=== PATIENT | male | born 1950 | race Caucasian/White ===

== ENCOUNTER 2017-01-11 07:01 | Emergency (ER) | payer BC ==
[2017-01-11 07:10] VITALS: BP 130/86
--- NOTE | 2017-01-11 07:24 | UC ---
Respiratory Complaint HPI - HPI Summary HPI Summary: chest congestion / cough x 10 days , no fever, + chills, + nasal congestion , pnd - History of Current Complaint Chief Complaint: UCRespiratory Stated Complaint: CHEST CONGESTION Time Seen by Provider: 01/11/17 07:11 Hx Obtained From: Patient Onset/Duration: Gradual Onset, Lasting Days - 10, Still Present Timing: Constant Severity Initially: Moderate Severity Currently: Moderate Character: Cough: Nonproductive Aggravating Factors: Exertion, Deep Breaths Alleviating Factors: Nothing Associated Signs And Symptoms: Positive: Chills, URI, Nasal Congestion. Negative: Dyspnea, Fever, Pleuritic Chest Pain, Wheezing, Hemoptysis, Dizziness , Calf Pain, Edema - Allergies/Home Medications Allergies/Adverse Reactions: Allergies Allergy/AdvReac Type Severity Reaction Status Date / Time Penicillins Allergy Hives Verified 01/11/17 07:10 Home Medications: Home Medications [id number] W/ APAP [Delsym Cough + Cold D... 8-19-280-325 mg/10Ml] 1 liq PO ONCE PRN 01/11/17 [History Confirmed 01/11/17] Tylenol Sore Throat 1 tab PO SEE INSTRUCTIONS PRN 01/11/17 [History Confirmed ] PMH/Surg Hx/FS Hx/Imm Hx Endocrine History Of: Denies: Diabetes, Thyroid Disease, Hyperthyroidism, Hypothyroidism, Dyslipidemia Cardiovascular History Of: Reports: Hypertension Denies: Cardiac Disorders, Pacemaker/ICD, Myocardial Infarction, Congestive Heart Failure, Atrial Fibrillation, Deep Vein Thrombosis, Bleeding Disorders Respiratory History Of: Denies: COPD, Asthma, Bronchitis, Pneumonia, Pulmonary Embolism GI/ History Of: Reports: Gastroesophageal Reflux Denies: Ulcer, Gastrointestinal Bleed, Gall Bladder Disease, Kidney Stones, Diverticulitis, Renal Disease, Urosepsis Neurological History Of: Denies: TIA, CVA, Dementia, Seizures, Migraine Psychological History Of: Denies: Anxiety, Depression, Bipolar Disorder, Schizophrenia, Post Traumatic Stress Disorder Cancer History Of: Reports: Prostate Cancer Denies: Lung Cancer, Colorectal Cancer, Breast Cancer, Cervical Cancer Other History Of: Negative For: HIV, Hepatitis B, Hepatitis C, Anticoagulant Therapy - Surgical History Surgical History: None - Family History Known Family History: Positive: Cardiac Disease Negative: Hypertension - Social History Alcohol Use: None Substance Use Type: None Smoking Status (MU): Never Smoked Tobacco Review of Systems Constitutional: Chills Skin: Negative Eyes: Negative ENT: Nasal Discharge Respiratory: Cough Cardiovascular: Negative All Other Systems Reviewed And Are Negative: Yes Physical Exam Triage Information Reviewed: Yes Appearance: Well-Appearing, No Pain Distress, Well-Nourished Vital Signs: Initial Vital Signs Temp 98.2 F 01/11/17 07:05 Pulse 97 01/11/17 07:05 Resp 20 01/11/17 07:05 BP 130/86 01/11/17 07:05 Pulse Ox 99 01/11/17 07:05 Vital Signs Reviewed: Yes Eye Exam: Normal Eyes: Positive: Conjunctiva Clear ENT: Positive: Normal ENT inspection, Hearing grossly normal, Pharynx normal, Nasal congestion, Nasal drainage, TMs normal. Negative: Pharyngeal erythema Neck exam: Normal Neck: Positive: Supple, Nontender, No Lymphadenopathy Respiratory: Positive: Chest non-tender, Lungs clear, Normal breath sounds, No respiratory distress Cardiovascular: Positive: RRR, No Murmur, Pulses Normal Abdominal Exam: Normal Skin Exam: Normal UC Diagnostic Evaluation - Laboratory O2 Sat by Pulse Oximetry: 99 Respiratory Course/Dx - Differential Dx/Diagnosis Provider Diagnoses: BRONCHITIS Discharge - Discharge Plan Condition: Stable Disposition: HOME Prescriptions: Azithromycin TAB* [Zithromax TAB (Z-DUANE) 250 mg #6 tabs] 2 tab PO .TODAY, THEN 1 DAILY #1 duane Guaifenesin-Codeine [Cheratussin AC] 10 ml PO Q8H PRN #120 ml MDD 30 ml PRN Reason: Cough Patient Education Materials: Acute Bronchitis (ED) Referrals: Agustín Lopez MD [Primary Care Provider] - 7 Days
== END 2017-01-11 07:28 | disposition home or self-care (01) ==
LOC: UCCORT 07:01
DX: J40 Bronchitis, not specified as acute or chronic (principal); Z85.46 Personal history of malignant neoplasm of prostate; Z88.0 Allergy status to penicillin
CPT/HCPCS: 99212; G0463

== ENCOUNTER 2017-02-26 09:26 | Emergency (ER) | payer BC ==
--- NOTE | 2017-02-26 09:45 | UC ---
Back Pain HPI - HPI Summary HPI Summary: The patient comes in today for: 1. Low back pain: Onset: "I've had a back problem for a long time."--10 years. But this is worsening with age and increase in weight. Palliative/provocative: Learning over or standing for "a long time" makes it worse. Orestes's pills do not help. Leaning over for a long time makes it worse. Quality: Tightness feeling of the lower back. Region: Mid and Lower back Severity: 0/10 Time: Comes and goes. Associated symptoms: Previous evaluation: Over the last 10 years he has had x-rays which showed arthritis. Fevers/infections: None. Weakness/numbness: None Cancer/unexpected weight loss: He had radiation for prostate cancer about 1 years ago. Last x-ray: 1 year ago. Bowel/bladder: No incontinence. * - History of Current Complaint Stated Complaint: MID/LOWER BACK PAIN Time Seen by Provider: 02/26/17 09:38 Hx Obtained From: Patient - Allergies/Home Medications Allergies/Adverse Reactions: Allergies Allergy/AdvReac Type Severity Reaction Status Date / Time Penicillins Allergy See Comment Verified 02/26/17 09:55 PMH/Surg Hx/FS Hx/Imm Hx Previously Healthy: No Endocrine History Of: Denies: Diabetes, Thyroid Disease, Hyperthyroidism, Hypothyroidism, Dyslipidemia Cardiovascular History Of: Reports: Hypertension Denies: Cardiac Disorders, Pacemaker/ICD, Myocardial Infarction, Congestive Heart Failure, Atrial Fibrillation, Deep Vein Thrombosis, Bleeding Disorders Respiratory History Of: Denies: COPD, Asthma, Bronchitis, Pneumonia, Pulmonary Embolism GI/ History Of: Reports: Gastroesophageal Reflux Denies: Ulcer, Gastrointestinal Bleed, Gall Bladder Disease, Kidney Stones, Diverticulitis, Renal Disease, Urosepsis Neurological History Of: Denies: TIA, CVA, Dementia, Seizures, Migraine Psychological History Of: Denies: Anxiety, Depression, Bipolar Disorder, Schizophrenia, Post Traumatic Stress Disorder Cancer History Of: Reports: Prostate Cancer Denies: Lung Cancer, Colorectal Cancer, Breast Cancer, Cervical Cancer Other History Of: Negative For: HIV, Hepatitis B, Hepatitis C, Anticoagulant Therapy - Surgical History Surgical History: None - Family History Known Family History: Positive: Cardiac Disease Negative: Hypertension - Social History Alcohol Use: None Substance Use Type: None Smoking Status (MU): Never Smoked Tobacco Review of Systems Constitutional: Negative Skin: Negative Eyes: Negative ENT: Negative Respiratory: Negative Cardiovascular: Negative Gastrointestinal: Negative Genitourinary: Negative Musculoskeletal: Arthralgia, Myalgia All Other Systems Reviewed And Are Negative: Yes Physical Exam Triage Information Reviewed: Yes Appearance: Well-Appearing, No Pain Distress, Well-Nourished Vital Signs Reviewed: Yes Eyes: Positive: Conjunctiva Clear. Negative: Discharge ENT: Positive: Hearing grossly normal. Negative: Pharyngeal erythema, Nasal congestion, Nasal drainage, TM bulging, TM dull, TM red, Tonsillar swelling, Tonsillar exudate Dental: Negative: Gross Decay/Caries @, Dental Fracture @ Neck: Positive: Supple, Nontender, No Lymphadenopathy. Negative: Nuchal Rigidity Respiratory: Positive: Lungs clear, No respiratory distress, No accessory muscle use. Negative: Crackles, Wheezing Cardiovascular: Positive: RRR, No Murmur Abdomen Description: Positive: Nontender, No Organomegaly, Soft. Negative: Distended, Guarding, Peritoneal Signs Musculoskeletal: Positive: ROM Intact, No Edema, Other: - Back: no psychomotor slowing or guarding. Minimal tenderness along the lower thoracic paraspinous musculature. Neurological: Positive: Alert, Muscle Tone Normal Psychological: Positive: Age Appropriate Behavior, Consolable Skin: Negative: rashes, breakdown Diagnostics - Radiology No standard instances Xray Interpretation: No Acute Changes Radiology Interpretation Completed By: ED Physician - No signs of lytic lesions- -just degenerative joint disease and mild scoliosis. Back Pain Course/Dx - Course Course Of Treatment: He was told of his treatment options. He wants to try a muscle relaxer and a short trial of an NSAIDS. - Differential Dx/Diagnosis Provider Diagnoses: Back pain, chronic. hypertension. GERD Discharge - Discharge Plan Condition: Stable Disposition: HOME Patient Education Materials: Hypertension (ED), Chronic Back Pain (ED) Referrals: Agustín Lopez MD [Primary Care Provider] - 1 Week (Please see your primary care provider in about one to two weeks to see how well you are doing. If you get worse, please be seen sooner.)
[2017-02-26 09:55] VITALS: BP 133/87
--- NOTE | 2017-02-26 11:00 | RAD ---
Indication: Chronic mid to lower back pain. History of prostate cancer. Comparison: August 22, 2006 CT abdomen including AP and lateral deputy felony clerk images. Technique: AP and lateral views centered at the thoracic lumbar junction. Report: Mild RIGHT convex curve at the lumbar spine increased over the prior exam. Negative for spondylolisthesis at any level. Diffuse degenerative spondylosis and facet joint osteoarthritis increasing in severity extending caudal. Disc space narrowing is severe from L1-L2 through the lumbar sacral junction. Vertebral endplate osteophytosis is advanced throughout most marked along the lateral convex margins. No fracture or focal osseous lesion evident. Unremarkable paraspinal soft tissue contours. IMPRESSION: 1. No radiographic evidence for suspicious focal osseous lesions. 2. Multilevel advanced degenerative spondylosis and facet joint osteoarthritis.
== END 2017-02-26 10:18 | disposition home or self-care (01) ==
LOC: UCCORT 09:26
DX: M54.5 Low back pain (principal); K21.9 Gastro-esophageal reflux disease without esophagitis; I10 Essential (primary) hypertension; Z88.0 Allergy status to penicillin
CPT/HCPCS: 72080; 99212; G0463

== ENCOUNTER 2018-03-27 13:56 | Emergency (ER) | payer BC ==
[2018-03-27 14:14] VITALS: BP 124/67
[2018-03-27] MEDS ORDERED: Albuterol HFA INHALER* 8 gm MDI INH ONE (15:00)
--- NOTE | 2018-03-27 15:01 | UC ---
Respiratory Complaint HPI - HPI Summary HPI Summary: 67 year old male with history of HTN here with cough and sob for few days. Reports URI about two weeks ago but in the past few days dry cough and subjective fever. No n/v/d or any other complaints. Reports wheezing sometimes but no chest pain. - History of Current Complaint Chief Complaint: UCRespiratory Stated Complaint: UPPER RESPIRATORY Time Seen by Provider: 03/27/18 14:19 Onset/Duration: Gradual Onset Severity Initially: Mild Pain Intensity: 0 Character: Cough: Nonproductive Aggravating Factors: Nothing Alleviating Factors: Nothing Associated Signs And Symptoms: Positive: Fever - Allergies/Home Medications Allergies/Adverse Reactions: Allergies Allergy/AdvReac Type Severity Reaction Status Date / Time Penicillins Allergy Swelling Verified 03/27/18 14:11 PMH/Surg Hx/FS Hx/Imm Hx Previously Healthy: Yes Cardiovascular History: Hypertension Other History Of: Negative For: HIV, Hepatitis B, Hepatitis C, Anticoagulant Therapy - Surgical History Surgical History: None - Family History Known Family History: Positive: Cardiac Disease Negative: Hypertension - Social History Alcohol Use: None Substance Use Type: None Smoking Status (MU): Never Smoked Tobacco - Immunization History Most Recent Tetanus Shot: unknown Review of Systems Constitutional: Fever Respiratory: Cough Musculoskeletal: Negative Neurological: Negative Psychological: Negative All Other Systems Reviewed And Are Negative: Yes Physical Exam Triage Information Reviewed: Yes Appearance: Well-Appearing, No Pain Distress, Well-Nourished Vital Signs: Initial Vital Signs Temp 37.2 C 03/27/18 14:09 Pulse 92 03/27/18 14:09 Resp 16 03/27/18 14:09 BP 124/67 03/27/18 14:09 Pulse Ox 99 03/27/18 14:09 Vital Signs Reviewed: Yes Eye Exam: Normal ENT Exam: Normal ENT: Positive: Normal ENT inspection Dental Exam: Normal Neck exam: Normal Neck: Positive: 1 Respiratory Exam: Normal Respiratory: Positive: Other: - Expiratory wheezing during cough. Cardiovascular Exam: Normal Abdominal Exam: Normal Musculoskeletal Exam: Normal Neurological Exam: Normal Psychological Exam: Normal Skin Exam: Normal UC Diagnostic Evaluation - Laboratory O2 Sat by Pulse Oximetry: 99 Respiratory Course/Dx - Differential Dx/Diagnosis Differential Diagnosis/HQI/PQRI: Bronchitis, Sinusitis Provider Diagnoses: bronchitis Discharge - Sign-Out/Discharge Documenting (check all that apply): Discharge/Admit/Transfer - Discharge Plan Condition: Good Disposition: HOME Prescriptions: Azithromycin TAB* [Zithromax TAB (Z-DUANE) 250 mg #6 tabs] 2 tab PO .TODAY, THEN 1 DAILY #1 duane Patient Education Materials: Acute Bronchitis (ED), Bronchospasm (ED) Referrals: Kevin Wang MD [Primary Care Provider] - - Billing Disposition and Condition Condition: GOOD Disposition: HOME
== END 2018-03-27 15:15 | disposition home or self-care (01) ==
LOC: UCCORT 13:56
DX: J40 Bronchitis, not specified as acute or chronic (principal); Z88.0 Allergy status to penicillin
CPT/HCPCS: 99213; A9270-GY; G0463

== ENCOUNTER 2019-05-10 13:31 | Emergency (ER) | payer MEDICARE ==
--- OUTSIDE RECORDS SUMMARY | 2019-05-10 13:40 | XMS REPORT | Continuity of Care Document ---
:1950 External Reference #:[id number] Author Name Marija Martinez Care Team Providers Name Role Phone Kevin Wang MD Care Team Information [employer] Unavailable Kevin Wang MD Primary Care Physician Unavailable Payers Date Identification Numbers Payment Provider Subscriber Policy Number: [id number] [employer]/Ship Julian Ruiz PayID: [id number] [address] [place] [address] Expires: 2018 Policy Number: [id number] BS [facility] Julian Ruiz PayID: [id number] [address] [address] [place] [address] Family History Date Family Member(s) Observation Comments General Hearing Loss Social History Type Date Description Comments Sex Unknown Marital Status Occupation Intermission Coordinator Tobacco Use Start: Unknown Never Smoked Cigarettes ETOH Use Rarely consumes alcohol Recreational Drug Use Never Used Drugs Allergies, Adverse Reactions, Alerts Active Allergies Reaction Severity Comments Date Penicillin 02/19/2010 Medications Active Medications SIG Qnty Indications Ordering Provider Date Lotrel 5-20mg Unknown Capsules Eq Omeprazole Magnesium qd Unknown 20mg Capsules DR Vital Signs Date Vital Result Comment 05/10/2019 10:54am Weight 251.00 lb Height 71 inches 5'11" BMI (Body Mass Index) 35.0 kg/m2 BP Systolic 111 mmHg BP Diastolic 66 mmHg Heart Rate 84 /min O2 % BldC Oximetry 95 % Body Temperature 98.4 F Pain Level 0 11/19/2018 2:46pm Weight 251.00 lb Height 71 inches 5'11" BMI (Body Mass Index) 35.0 kg/m2 BP Systolic 124 mmHg BP Diastolic 79 mmHg Heart Rate 89 /min O2 % BldC Oximetry 96 % Body Temperature 98.4 F Pain Level 0 11/10/2018 3:32pm Weight 250.00 lb Height 71 inches 5'11" BMI (Body Mass Index) 34.9 kg/m2 BP Systolic 131 mmHg BP Diastolic 86 mmHg Heart Rate 101 /min O2 % BldC Oximetry 97 % Body Temperature 97.1 F Pain Level 0 02/19/2010 4:29pm Weight 237.00 lb Height 71 inches 5'11" BMI (Body Mass Index) 33.1 kg/m2 BP Systolic 134 mmHg BP Diastolic 73 mmHg Heart Rate 68 /min O2 % BldC Oximetry 98 % Body Temperature 97.8 F Procedures Date Code Description Status 11/19/2018 58979 Tympanometry Completed 11/19/2018 73635 Audiometry, Comprehensive Completed 02/19/2010 69454 Audiometry, Comprehensive Completed 02/19/2010 73723 Tympanometry And Reflex Thres Completed Encounters Type Date Location Provider Dx Diagnosis Office Visit 11/19/2018 Main Office Gael Perry M.D. K21.9 Gastro- esophageal 2:30p reflux disease without esophagitis H91.93 Unspecified hearing loss, bilateral Office Visit 11/10/2018 3:30p Main Office Gael Perry, H61.21 Anayeli rico M.D. right ear K21.9 Gastro-esophageal reflux disease without esophagitis Office Visit 02/19/2010 4:15p Main Office [address], 780.4 Dizziness & PA Giddiness
[2019-05-10 14:01] VITALS: BP 111/73
[2019-05-10] MEDS ORDERED: Lidocaine 1%* 5 ML VIAL INJ ONE (14:38)
[2019-05-10] MEDS ORDERED: Mupirocin 2% OINT* TUBE TOPICAL ONE (15:34)
[2019-05-10] MEDS ORDERED: Clindamycin CAP* 150 MG PO ONE (15:35)
--- NOTE | 2019-05-10 15:39 | UC ---
Skin Complaint HPI - HPI Summary HPI Summary: 68-year-old male comes in with a chief complaint of a foreign body in the right foot. Just prior to arrival patient was barefoot in his house and he was moving some furniture and she backed up and felt sudden pain in his right heel. He found a toothpick with her about a quarter inch of wood missing off the tip. He feels like he still has a piece of the toothpick in his foot. Pain is worse with weightbearing or palpation. Patient is not a diabetic. - History of Current Complaint Chief Complaint: UCSkin Time Seen by Provider: 05/10/19 13:59 Stated Complaint: SKIN CONCERN Pain Intensity: 8 - Allergy/Home Medications Allergies/Adverse Reactions: Allergies Allergy/AdvReac Type Severity Reaction Status Date / Time Penicillins Allergy Swelling Verified 05/10/19 14:02 tetanus vaccine AdvReac localized Uncoded 05/10/19 14:03 swelling at inj site Home Medications: Home Medications Amlodipine Besylate/Benazepril [Lotrel 5-20 mg Capsule] 1 each PO QAM 05/10/19 [ History Confirmed 05/10/19] raNITIdine HCl [Zantac] 150 mg PO DAILY 05/10/19 [History Confirmed 05/10/19] PMH/Surg Hx/FS Hx/Imm Hx Previously Healthy: Yes Cardiovascular History: Hypertension GI/ History: Gastroesophageal Reflux Other History Of: Negative For: HIV, Hepatitis B, Hepatitis C, Anticoagulant Therapy - Surgical History Surgical History: Yes Surgery Procedure, Year, and Place: cataracts - Family History Known Family History: Positive: Cardiac Disease Negative: Hypertension - Social History Alcohol Use: None Substance Use Type: None Smoking Status (MU): Never Smoked Tobacco - Immunization History Most Recent Tetanus Shot: unknown Review of Systems All Other Systems Reviewed And Are Negative: Yes Constitutional: Positive: Negative Skin: Positive: Other - SEE HPI Eyes: Positive: Negative ENT: Positive: Negative Respiratory: Positive: Negative Cardiovascular: Positive: Negative Gastrointestinal: Positive: Negative Motor: Positive: Negative Neurovascular: Positive: Negative Musculoskeletal: Positive: Other: - SEE HPI Neurological: Positive: Negative Psychological: Positive: Negative Is Patient Immunocompromised?: No Physical Exam Appearance: Well-Appearing, Well-Nourished, Pain Distress - WITH PALPATION OF RT HEEL Vital Signs: Initial Vital Signs Temp 98.9 F 05/10/19 13:54 Pulse 90 05/10/19 13:54 Resp 20 05/10/19 13:54 BP 111/73 05/10/19 13:54 Pulse Ox 98 05/10/19 13:54 Vital Signs Reviewed: Yes Eye Exam: Normal Eyes: Positive: Conjunctiva Clear Neck: Positive: Supple Respiratory: Positive: No respiratory distress Musculoskeletal: Positive: Strength Intact, ROM Intact Neurological: Positive: Alert, Muscle Tone Normal Psychological: Positive: Age Appropriate Behavior Skin: Positive: Other - RT HEEL WITH PUNTURE WOUND WITH SWELLING AND TENDERNESS Course/Dx - Course Course Of Treatment: I attempted to remove the foreign body. It clean the area with Shur-Clens. One percent lidocaine was used for anesthesia. I was unable to find foreign body. The patient on clindamycin. Plan is to follow-up with orthopedics if he' s not completely improved. - Diagnoses Provider Diagnosis: Foreign body in soft tissue Discharge - Sign-Out/Discharge Documenting (check all that apply): Patient Departure All imaging exams completed and their final reports reviewed: Yes - Discharge Plan Condition: Stable Disposition: HOME Prescriptions: Clindamycin Cap(NF) [Clindamycin Cap 300 mg Cap(NF)] 300 mg PO Q6H #40 cap Patient Education Materials: Soft Tissue Foreign Body (ED) Referrals: Kevin Wang MD [Primary Care Provider] - Justice Masters MD [Medical Doctor] - Additional Instructions: FOLLOW UP WITH ORTHOPEDICS, DR SIERRA, IF NOT COMPLETELY IMPROVED. GET RECHECKED SOONER IF YOUR CONDITION WORSENS; PAIN, FEVER, SIGNS OF INFECTION OR ANY QUESTIONS OR CONCERNS. - Billing Disposition and Condition Condition: STABLE Disposition: Home
== END 2019-05-10 16:02 | disposition home or self-care (01) ==
LOC: UCCORT 13:31
DX: S91.341A Puncture wound with foreign body, right foot, initial encounter (principal); W22.8XXA Striking against or struck by other objects, initial encounter; Y93.89 Activity, other specified; Y92.009 Unspecified place in unspecified non-institutional (private) residence as the place of occurrence of the external cause; Z88.0 Allergy status to penicillin; Z88.7 Allergy status to serum and vaccine; I10 Essential (primary) hypertension
CPT/HCPCS: 99213; A9270-GY; G0463